=== PATIENT | male | born 1950 | race Caucasian/White ===

== ENCOUNTER 2024-03-06 06:29 | Day surgery (SDC) | payer MEDICARE, OTHER, SELFPAY ==
[2024-03-03 09:58] VITALS: BMI 26.2
[2024-03-06] VITALS (8 sets, daily range): BP systolic 118–134; BP diastolic 66–74; BMI 26.2
[2024-03-06] MEDS: NORMOSOL-R 1000 IV (12:32)
[2024-03-06] MEDS: TYLENOL 1000 MG PO (12:54)
--- NOTE | 2024-03-06 14:09 | PTCARENOTE ---
Patient checked on several times while he waited to be brought to the OR. Patient offered bathroom trip and warm blankets. Will monitor patient.
== END 2024-03-06 16:29 | disposition home or self-care (01) ==
LOC: SDS 06:29
PROVIDERS: ATTENDING PHYSICIAN Otolaryngology; FAMILY PHYSICIAN Family Medicine
DX: C83.11 Mantle cell lymphoma, lymph nodes of head, face, and neck (principal); J35.2 Hypertrophy of adenoids; C85.90 Non-Hodgkin lymphoma, unspecified, unspecified site
CPT/HCPCS: 31237; 88304; 88333; 88334; 88341; 88342; 88365